=== PATIENT | female | born 1970 | race African-American/Black ===

== ENCOUNTER 2020-05-16 07:26 | Emergency (ER) | payer MEDICAID, OTHER ==
[~2020-05-16] VITALS: Ht 170.2 cm; Wt 90.0 kg
[2020-05-16] MEDS ORDERED: BACITRACIN ZINC OINT UDPKT TOP ONE (08:30)
[2020-05-16] MEDS ORDERED: TETANUS, DIPHTHERIA, PERTUSSIS VAC/PF 0.5ML (>7YR OLD) IM ONE (08:30)
[2020-05-16] MEDS ORDERED: LIDOCAINE HCL/EPINEPHRINE 1%-EPI 1:100,000 20 ML VIAL INFIL ONE (08:30)
[2020-05-16] MEDS ORDERED: MORPHINE SULFATE 4 MG/ML CPJ (NOT FOR IM USE) IV ONE ×2 (08:30→12:15)
[2020-05-16] MEDS ORDERED: LIDOCAINE 1%/EPI 1:100,000 10 ML VIAL IJ ONE (08:30)
[2020-05-16] MEDS ORDERED: VANCOMYCIN 1 G PREMIX 200 ML IV SCH (09:00)
[2020-05-16] MEDS ORDERED: PIPERACILLIN SODIUM/TAZOBACTAM 4.5 G in DEXT 5% WATER 100 ML IV SCH (09:00)
[2020-05-16 10:06] LABS: HEMATOCRIT. 38.5 % (36.0-48.0); HEMOGLOBIN. 12.3 g/dL (12.0-16.0); MEAN CORPUSCULAR HEMOGLOBIN 26.3 pg (28.0-32.0); MEAN CORPUSCULAR VOLUME 82.6 fL (81.0-99.0); MEAN PLATELET VOLUME 8.1 fl (7.4-10.4); PLATELET 358 x1000/uL (130-400); RED BLOOD CELL COUNT 4.66 mill/uL (4.2-5.4); RED CELL DISTRIBUTION WIDTH 15.1 % (11.6-14.6)
[2020-05-16 10:08] LABS: CHLORIDE 108 mEq/L (98-107)
[2020-05-16 10:11] LABS: PARTIAL THROMBOPLASTIN TIME 26.5 sec (23.4-31.0); PROTHROMBIN TIME 10.8 sec (9.6-11.0)
[2020-05-16] MEDS ORDERED: MORPHINE SULFATE 4 MG/ML CPJ (NOT FOR IM USE) IV NR (11:00)
[2020-05-16 11:05] LABS: PLATELET ESTIMATE NORMAL
[2020-05-16 12:13] VITALS: BP 166/87
== END 2020-05-16 12:14 | disposition short-term general hospital (02) ==
LOC: ER 09:15
DX: S88.92 Partial traumatic amputation of lower leg, level unspecified (principal); S91.051A Open bite, right ankle, initial encounter; W54.0XXA Bitten by dog, initial encounter; Y93.01 Activity, walking, marching and hiking; Y92.9 Unspecified place or not applicable
CPT/HCPCS: 36415; 71045; 73610; 80053; 85025; 85610; 85730; 90471; 90715; 93005; 96365; 96375; 96376; 99285; J2270; J2543; J3370; J3490; J7060